=== PATIENT | male | born 1965 | race Caucasian/White ===

== ENCOUNTER 2022-02-11 13:10 | Day surgery (SDC) | payer BC, OTHER ==
[2022-02-11] MEDS ORDERED: Lactated Ringers 1,000 ML IV SCH (14:00)
[2022-02-11] MEDS ORDERED: Sodium Chloride 0.9% 10 ML Syringe FLUSH PRN (14:00)
[2022-02-11] MEDS ORDERED: Propofol 200 MG/20 ML SDV ONE (14:24)
[2022-02-11] MEDS ORDERED: Midazolam 1 MG/ML 2 ML SDV ONE (14:24)
[2022-02-11 15:21] VITALS: BP 112/70; PULSE 74
== END 2022-02-11 15:52 | disposition home or self-care (01) ==
LOC: KA.SDS 13:10
PROVIDERS: ATTEND Family Medicine
DX: D12.0 Benign neoplasm of cecum (principal); K64.8 Other hemorrhoids; E78.1 Pure hyperglyceridemia; Z79.899 Other long term (current) drug therapy
CPT/HCPCS: 00811; 45385; J2250; J2704; J7120